=== PATIENT | female | born 1990 | race African-American/Black ===

== ENCOUNTER 2016-07-20 19:04 | Emergency (ER) | payer BC, OTHER ==
[~2016-07-20] VITALS: Ht 167.6 cm; Wt 68.0 kg
[2016-07-20 20:35] VITALS: Ht 167.6 cm; Wt 68.0 kg
[2016-07-20] MEDS ORDERED: SOD CHLORIDE 0.9% 1,000 ML IV STA (21:06)
[2016-07-20] MEDS ORDERED: KETOROLAC 30 MG INJ IV STA (21:06)
[2016-07-20] MEDS ORDERED: ONDANSETRON 4 MG INJ IV STA (21:06)
--- NOTE | 2016-07-20 21:12 | ERD ---
ER Documentation Chief Complaint Date/Time DATE: 07/20/16 Chief Complaint Headache HPI The patient is a 26-year-old female who presents to the Emergency Department with complaint of headache that began today. The patient reports that her headache was gradual in onset, and is localized to the right frontal region of her head. It does not radiate. Her headache is pressure-like in nature, and has been intermittent since onset. She reports a history of similar prior headaches , that develop in a similar fashion. In the past, she has experienced several other associated symptoms, with photophobia, dizziness, nausea, though denies any of those symptoms at this time. Denies blurred vision, diplopia, vision loss or visual changes. Denies neck pain or neck stiffness. Denies recent fevers or chills. Denies recent URI type symptoms, including rhinorrhea, nasal congestion, cough, sore throat. Denies abdominal pain, vomiting, diarrhea. Denies new rashes. Denies numbness, paresthesias or weakness of the distal extremity. Denies confusion, altered mental status or change in mentation. Denies weakness or lethargy. ROS All systems reviewed and are negative except as per history of present illness. Medications Home Meds Active Scripts Naproxen* (Naprosyn*) 500 Mg Tablet, 500 MG PO BID Y for PAIN AND/OR INFLAMMATION, #30 TAB Prov:SUKHJINDER CLAROS PA-C 07/20/16 Allergies Allergies: Coded Allergies: No Known Allergy (Unverified , 07/20/16) PMhx/Soc Medical and Surgical Hx: pt denies Medical Hx History of Surgery: Yes (spinal surgery) Anesthesia Reaction: No Hx Respiratory Disorders: No Hx Cardiac Disorders: No Hx Psychiatric Problems: No Hx Miscellaneous Medical Probl: No Hx Alcohol Use: Yes (socially) Hx Substance Use: No Hx Tobacco Use: Yes (hooka once in a while) Smoking Status: Light tobacco smoker Physical Exam Vitals Vital Signs Date Time Temp Pulse Resp B/P Pulse Ox O2 Delivery O2 Flow Rate FiO2 07/20/16 22:33 98.2 71 18 125/58 100 Room Air 07/20/16 20:35 99.6 78 20 127/68 100 Physical Exam GENERAL: Well-developed, well-nourished, female, in no acute distress. Nontoxic. Well-appearing. HEENT: Head is normocephalic, atraumatic. No scleral pallor or icterus. Pupils equal, round and reactive to light. Extraocular movements intact. No photophobia. Conjunctiva pink. Moist mucous membranes. No pharyngeal erythema or exudates. NECK: Supple. No masses, no tenderness, no lymphadenopathy. Trachea midline. No nuchal rigidity. No meningismus. RESPIRATORY: Lungs are clear to auscultation bilaterally. Equal breath sounds. Normal expiratory effort. CARDIOVASCULAR: Regular rate and rhythm. S1 and S2 normal. GASTROINTESTINAL: Abdomen is soft, non-tender, and non-distended. EXTREMITIES: No clubbing, cyanosis, or edema. Normal skin perfusion. Moving all extremities. No focal swelling or erythema. NEUROLOGIC: The patient is awake, alert, oriented to person, place and time. Speech is fluent. Language parameters are intact. Follows commands well. Comprehension is intact. Cranial nerves II through XII are intact. Pupils are equal and reactive bilaterally. Extraocular movements are intact. There is no nystagmus. Facial sensation and facial movements are symmetrical. Uvula elevates symmetrically. Tongue is midline. Motor examination reveals 5/5 strength in bilateral upper and lower extremities. Sensory examination is grossly intact to light touch. Reflexes symmetrical. Normal [id number] testing. No visual field deficits. Vision grossly intact. Gait is observed and normal, no ataxia. INTEGUMENT: Skin is intact. Warm and dry. No rashes, no petechiae present. Normal turgor. PSYCHIATRIC: Cooperative; appropriate. Results 24 hrs Current Medications Medications (Trade) Dose Ordered Sig/Olive Route PRN Reason Start Time Stop Time Status Last Admin Dose Admin Sodium Chloride (NS) 1,000 ml @ 1,000 mls/hr Q1H STAT IV 07/20/16 21:06 07/20/16 22:05 DC 07/20/16 21:19 Ondansetron HCl (Zofran Inj) 4 mg ONCE STAT IV 07/20/16 21:06 07/20/16 21:07 DC 07/20/16 21:19 Ketorolac Tromethamine (Toradol) 30 mg ONCE STAT IV 07/20/16 21:06 07/20/16 21:07 DC 07/20/16 21:19 Procedures/MDM This is a 26-year-old female presenting to the emergency department with a [id number] right-sided headache. The patient had no significant abnormalities on physical examination, exhibited no altered mental status, neurologic deficits or meningeal signs. The differential diagnosis includes, but is not limited to, subarachnoid hemorrhage, intracerebral bleeding, cerebral aneurysm, meningitis, encephalitis, brain abscess, embolic stroke, brain tumor, temporal arteritis, sinusitis, migraine headache, tension headache , acute glaucoma, cluster headache, pseudotumor cerebri, encephalopathy. Her condition improved during her stay. After rest and administration of 4 mg Zofran, 30 mg Toradol and a liter of fluids the patient reports no new complaints and decreased pain. Upon my review and interpretation of the patient's presentation and overall ER course, I believe the patient's symptoms are most consistent with a headache, now resolved. At this time, I do not think that a CT scan or lumbar puncture is necessary, given that the patient's symptoms and pain have resolved, were gradual in onset, and similar to her prior headaches. The patient is in stable condition and no longer experiencing any pain, and therefore can be discharged home with a prescription for Naproxen and strict return precautions for signs of deteriorating or worsening condition. She is advised to follow up with her primary care provider for reevaluation and further management within 2-3 days, or to return to the ER sooner for any worsening symptoms. Additionally, she may follow up with neurology for further evaluation. I shared my medical decision making and plan with the patient at length and in great detail, and the patient verbally understands and agrees with the plan for further observation and care as an outpatient. At the time of discharge, all questions were answered. Departure Diagnosis: Primary Impression: Headache Headache type: unspecified Headache chronicity pattern: acute headache Intractability: not intractable Qualified Code: R51 - Acute nonintractable headache, unspecified headache type Condition: Stable Patient Instructions: Headache, Unspecified, Self-Care for Headaches Additional Instructions: Call your primary care doctor TOMORROW for an appointment during the next 2-3 days.See the doctor sooner or return here if your condition worsens before your appointment time. Dr. Kathie Rodas [facility] [id number] [facility] [address], [place] [id number] [phone] SUKHJINDER CLAROS PA-C Jul 20, 2016 21:12
[2016-07-20] MEDS ORDERED: NAPR-260 PO (22:24)
[2016-07-20 22:33] VITALS: BP 125/58; PULSE 71; RESP 18; TEMP 98.2
== END 2016-07-20 22:35 | disposition home or self-care (01) ==
LOC: FTE 19:04
DX: R51 Headache (principal); R11.0 Nausea; F17.210 Nicotine dependence, cigarettes, uncomplicated
CPT/HCPCS: 96374; 96375; 99284; J1885; J2405; J7030